=== PATIENT | male | born 1975 | race Caucasian/White ===

== ENCOUNTER → 2021-10-20 | Outpatient (CLI) | payer OTHER ==
--- NOTE | 2021-10-20 09:46 | KCIC ---
EXAM: Abdomen sonogram. HISTORY: Pain. TECHNIQUE: Sonographic imaging of the abdomen was performed. COMPARISON: None. FINDINGS: The liver is normal in size. There is hepatic steatosis. No focal hepatic lesion is seen. T he common bile duct is normal in caliber. The gallbladder is surgically absent. The kidneys are unrem arkable. The spleen is enlarged, measuring 15.3 cm in maximum dimension. The aorta is normal in calib er. The inferior vena cava is patent. The pancreas is obscured due to bowel gas. IMPRESSION: 1. Hepatic steatosis. 2. Cholecystectomy. 3. Splenomegaly. Electronically signed by: Tita Guerra MD (10/20/2021 9:43 AM) [id number]
== END ==
LOC: KCIC US 08:07
PROVIDERS: ATTEND Family Medicine
DX: R16.1 Splenomegaly, not elsewhere classified (principal); K76.0 Fatty (change of) liver, not elsewhere classified; Z90.49 Acquired absence of other specified parts of digestive tract
CPT/HCPCS: 76700